=== PATIENT | female | born 2000 | race African-American/Black ===

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

== ENCOUNTER 2020-09-12 18:00 | Emergency (ER) | payer BC, OTHER ==
[~2020-09-12] VITALS: Ht 160 cm; Wt 68.0 kg
--- NOTE | 2020-09-12 18:36 | NUR ---
at bedside for assessment
[2020-09-12] MEDS ORDERED: SULFAMETH/TRIMETH 800/160 MG TABLET PO ONE (19:00)
[2020-09-12] MEDS ORDERED: CEFTRIAXONE 1 G VIAL IM ONE (19:00)
[2020-09-12] MEDS ORDERED: SULF1TAB48 PO (19:03)
[2020-09-12] MEDS ORDERED: CEPH500T PO (19:03)
--- NOTE | 2020-09-12 19:05 | NUR ---
Pt came in today for insect bites on left upper leg. Denies any other symptoms.
[2020-09-12] MEDS ORDERED: CEFTRIAXONE 1 G VIAL ONE ×2 (19:11→19:22)
[2020-09-12] MEDS ORDERED: LIDOCAINE 1%-EPI 1:100,000 20 ML VIAL ONE (19:12)
[2020-09-12] MEDS ORDERED: SULFAMETH/TRIMETH 800/160 MG TABLET ONE (19:12)
[2020-09-12] MEDS ORDERED: LIDOCAINE HCL 1% 20 ML VIAL ONE (19:21)
[2020-09-12 19:25] VITALS: BP 122/79
--- NOTE | 2020-09-12 19:25 | NUR ---
Patient discharged to home in stable condition. Written and verbal after care instructions given. Patient verbalizes understanding of instructions. Stressed follow up or return to ER for worsening s/s.
== END 2020-09-12 19:26 | disposition home or self-care (01) ==
LOC: ER 18:02
DX: L03.116 Cellulitis of left lower limb (principal); S70.362A Insect bite (nonvenomous), left thigh, initial encounter; W57.XXXA Bitten or stung by nonvenomous insect and other nonvenomous arthropods, initial encounter; Y93.89 Activity, other specified; Y92.89 Other specified places as the place of occurrence of the external cause; Y99.8 Other external cause status
CPT/HCPCS: 96372; 99284; J0696; J3490 ×2; A4663

== ENCOUNTER 2020-09-21 15:08 | Emergency (ER) | payer BC, OTHER ==
[~2020-09-21] VITALS: Ht 160 cm; Wt 68.0 kg
[~2020-09-21 15:08] MED LIST: CEPH500T PO; SULF1TAB48 PO
--- NOTE | 2020-09-21 16:06 | NUR ---
DR GOMEZ AT BEDSIDE FOR EVALUATION.
[2020-09-21 16:43] LABS: *URINE HCG, QUAL NEGATIVE (NEGATIVE)
--- NOTE | 2020-09-21 18:45 | NUR ---
Patient discharged to home in stable condition. No signs of acute distress. Written and verbal after care instructions given. Patient verbalizes understanding of instructions. Stressed follow up or return to ER for worsening s/s.
[2020-09-21 19:18] VITALS: BP 133/63
== END 2020-09-21 18:45 | disposition home or self-care (01) ==
LOC: ER 15:08
DX: R53.83 Other fatigue (principal); Z20.822 Contact with and (suspected) exposure to COVID-19
CPT/HCPCS: 84703; A4663

== ENCOUNTER 2020-09-26 07:53 | Emergency (ER) | payer BC, OTHER ==
[~2020-09-26] VITALS: Ht 160 cm; Wt 68.0 kg
[2020-09-26 08:21] LABS: *URINE HCG, QUAL NEGATIVE (NEGATIVE)
--- NOTE | 2020-09-26 08:33 | NUR ---
Received report charge aide. A,A,oriented x 4 complaint cough, uring pregnacy test negative. Portable CXR bedside. HOB up.
[2020-09-26] MEDS ORDERED: FEXO180T94 PO (08:44)
[2020-09-26] MEDS ORDERED: FLUT16SP16 NS (08:44)
[2020-09-26] MEDS ORDERED: PSEU120T99 PO (08:44)
[2020-09-26 08:52] VITALS: BP 118/68
== END 2020-09-26 08:50 | disposition home or self-care (01) ==
LOC: ER 07:54
DX: J32.8 Other chronic sinusitis (principal)
CPT/HCPCS: 71045; 84703; A4663

== ENCOUNTER 2023-04-18 08:51 | Emergency (ER) | payer BC, OTHER ==
[~2023-04-18] VITALS: Ht 157.5 cm; Wt 63.5 kg
[~2023-04-18 08:51] MED LIST changes: +FLUT16SP16 NS; +PSEU120T99 PO
[2023-04-18] MEDS ORDERED: AMOX500T2 PO (09:42)
[2023-04-18] MEDS ORDERED: IBUP-1955 PO (09:42)
[2023-04-18 10:07] VITALS: BP 129/78; TEMP 98.2; O2SAT 98
== END 2023-04-18 10:07 | disposition home or self-care (01) ==
LOC: ER 08:51
DX: H66.92 Otitis media, unspecified, left ear (principal); Z79.899 Other long term (current) drug therapy
CPT/HCPCS: A4606; A4663

== ENCOUNTER 2024-05-14 18:49 | Emergency (ER) | payer BC, OTHER ==
[~2024-05-14] VITALS: Ht 157.5 cm; Wt 65.8 kg
[~2024-05-14 18:49] MED LIST changes: +AMOX500T2 PO; +IBUP-1955 PO; +NITR-84 PO
[2024-05-14] MEDS ORDERED: NORG1TAB73 PO (19:16)
[2024-05-14 19:49] LABS: BASOPHILS % (AUTO) 0.7 % (0.0-2.0); EOSINOPHILS # (AUTO) 0.2 K/uL (0.0-0.7); EOSINOPHILS % (AUTO) 2.5 % (0.0-7.0); HEMATOCRIT 37.7 % (31.2-41.9); HEMOGLOBIN 12.1 g/dL (10.9-14.3); LYMPHOCYTES # (AUTO) 2.3 K/uL (0.8-4.8); LYMPHOCYTES % (AUTO) 37.8 % (20.5-51.5); MEAN CORPUSCULAR HEMOGLOBIN 24.7 uug (24.7-32.8); MEAN CORPUSCULAR HGB CONC 32 g/dL (32.3-35.6); MEAN CORPUSCULAR VOLUME 77.1 fL (75.5-95.3); MONOCYTES # (AUTO) 0.5 K/uL (0.1-1.30); MONOCYTES % (AUTO) 8.3 % (0.0-11.0); NEUTROPHILS # (AUTO) 3.1 K/uL (1.8-8.9); NEUTROPHILS % (AUTO) 50.7 % (38.5-71.5); PLATELET COUNT (AUTO) 306 K/uL (179-408); RED BLOOD CELL COUNT(AUTO) 4.89 MIL/uL (3.63-4.92); RED CELL DISTRIBUTION WIDTH 14.5 % (12.3-17.7); WHITE BLOOD COUNT (AUTO) 6.1 K/uL (3.8-11.8)
[2024-05-14 19:50] LABS: DIFFERENTIAL COMMENT 1
[2024-05-14 19:57] LABS: CALCIUM 8.4 mg/dL (8.5-10.1); CREATININE 0.7 mg/dL (0.6-1.3); POTASSIUM 3.9 mmol/L (3.5-5.1)
[2024-05-14 20:56] VITALS: BP 123/69; O2SAT 100
== END 2024-05-14 20:56 | disposition home or self-care (01) ==
LOC: ER 18:53
DX: R00.2 Palpitations (principal); E11.9 Type 2 diabetes mellitus without complications; F41.9 Anxiety disorder, unspecified; Z88.7 Allergy status to serum and vaccine; Z86.69 Personal history of other diseases of the nervous system and sense organs
CPT/HCPCS: 36415; 83735; 85025; A4606; A4663